=== PATIENT | female | born 1945 | race Caucasian/White ===

== ENCOUNTER 2023-05-14 12:12 | Day surgery (SDC) | payer OTHER ==
[2023-05-14] VITALS (8 sets, daily range): BP systolic 101–134; BP diastolic 61–68; PULSE 61–75; RESP 14–20; O2SAT 98–100
[~2023-05-14] VITALS: Ht 156.2 cm; Wt 80.5 kg
[2023-05-14] MEDS ORDERED: ZINC PO (12:44)
[2023-05-14] MEDS ORDERED: LISI1TAB53 PO (12:44)
[2023-05-14] MEDS ORDERED: IBUP-2417 (12:44)
[2023-05-14] MEDS ORDERED: POLY17PO10 PO (12:44)
[2023-05-14] MEDS ORDERED: FAMO40TA58 PO (12:44)
[2023-05-14] MEDS ORDERED: CALC-1073 PO (12:44)
[2023-05-14] MEDS ORDERED: MULT-1249 (12:44)
[2023-05-14] MEDS ORDERED: OXYC-150 PO (12:44)
[2023-05-14] MEDS ORDERED: VIT D3 PO (12:44)
[2023-05-14] MEDS ORDERED: VIT1CAPS46 PO (12:44)
[2023-05-14] MEDS ORDERED: CYCL-1 PO (12:44)
[2023-05-14] MEDS ORDERED: MELA5TAB12 PO (12:44)
[2023-05-14] MEDS ORDERED: VIT B12 PO (12:44)
[2023-05-14] MEDS ORDERED: PREVAGEN PO (12:44)
[2023-05-14] MEDS ORDERED: ROSU10TA2 PO (12:44)
[2023-05-14] MEDS ORDERED: fentaNYL/PF 50MCG/1 ML 2ML syringe ONE (12:50)
[2023-05-14] MEDS ORDERED: MIDAZolam 1 MG/ML 5ML VIAL ONE (12:51)
[2023-05-14] MEDS ORDERED: diphenhydrAMINE 50 mg/ml inj ONE (12:51)
[2023-05-14] MEDS ORDERED: LIDOcaine Viscous 15ml cup ONE (12:51)
[2023-05-14] MEDS ORDERED: levoFLOXACIN-Levaquin 500mg/D5 100 ML IV ONE (12:51)
[2023-05-14] MEDS ORDERED: glucagon, human recombinant 1mg kit ONE (12:51)
[2023-05-14] MEDS ORDERED: iohexol 300mg/ml 100ml inj. ONE ×2 (12:52)
[2023-05-14] MEDS ORDERED: proCHLORperazine 10 MG/2 ml inj ONE (13:03)
== END 2023-05-14 15:08 | disposition home or self-care (01) ==
LOC: GI LAB 12:12
PROVIDERS: ATTEND Internal Medicine Gastroenterology
DX: K83.1 Obstruction of bile duct (principal); I10 Essential (primary) hypertension; F17.210 Nicotine dependence, cigarettes, uncomplicated; Z79.899 Other long term (current) drug therapy
CPT/HCPCS: 43274; 74328; 99152; 99153; C2625; J0780; J1956; J2250; J3010; J7030; Q9967; Z7512; Z7610; A4620; C1769; J1200; J1610